=== PATIENT | female | born 1935 | race Caucasian/White ===

== ENCOUNTER 2018-12-11 08:48 | Outpatient (CLI) | payer OTHER | END 2018-12-11 14:47 | disposition home or self-care (01) | LOC: TOM 08:48 | DX: K56.600 Partial intestinal obstruction, unspecified as to cause (principal); K64.0 First degree hemorrhoids; Z86.010 Personal history of colon polyps ==

== ENCOUNTER 2021-09-06 08:40 | Outpatient (CLI) | payer OTHER | END 2021-09-06 08:48 | disposition home or self-care (01) | LOC: RX STUDY 08:40 | PROVIDERS: ATTEND Internal Medicine Gastroenterology | DX: K44.9 Diaphragmatic hernia without obstruction or gangrene (principal); R12 Heartburn; K21.9 Gastro-esophageal reflux disease without esophagitis ==

== ENCOUNTER 2024-08-27 11:47 | Outpatient (CLI) | payer OTHER | END 2024-08-27 11:50 | disposition home or self-care (01) | LOC: SONOGRAMA 11:47 | PROVIDERS: ATTEND Pathology Anatomic Pathology & Clinical Pathology | DX: R59.0 Localized enlarged lymph nodes (principal); D37.030 Neoplasm of uncertain behavior of the parotid salivary glands ==